=== PATIENT | female | born 1980 | race Caucasian/White ===

== ENCOUNTER 2021-12-10 05:25 | Emergency (ER) | payer MEDICAID, OTHER ==
[~2021-12-10] VITALS: Ht 172.7 cm; Wt 94.2 kg
[2021-12-10 05:32] VITALS: BP 143/105
[2021-12-10] MEDS ORDERED: ONDA4TAB11 PO (06:07)
--- NOTE | 2021-12-10 06:07 | ED General ---
General Chief Complaint: General Problems/Pain Stated Complaint: NAUSEA/VOMITING Nursing Triage Note: Patient states that she hasn't been feeling good for the last couple of days. Patient can't pinpoint a problem other than she states she has been lethargic. Patient denies any sick contacts however [place] Patient has a flat affect. Source of Information: Patient Exam Limitations: No Limitations History of Present Illness Date Seen by Provider: Dec 10, 2021 Time Seen by Provider: 05:30 Initial Comments Patient is 41-year-old female presents with fatigue nausea for the past couple days with difficulty urinating. She reports multiple sick contacts. She denies fever chills nausea sweats. No cough, sore throat. No rash headache, dizziness, change in vision. No other symptoms or complaints Timing/Duration: 12-24 Hours Modifying Factors: improves with Other Associated Systoms: Other Allergies and Home Medications Patient Home Medication List Home Medication List Reviewed: No Review of Systems Review of Systems Constitutional: see HPI EENTM: see HPI Respiratory: see HPI Cardiovascular: see HPI Gastrointestinal: see HPI Genitourinary: see HPI Musculoskeletal: see HPI Skin: see HPI Psychiatric/Neurological: See HPI Hematologic/Lymphatic: See HPI Immunological/Allergic: see HPI All Other Systems Reviewed Negative Unless Noted: Yes Past Kxphoke-Wjcryi-Qnlmcq Hx Patient Social History Tobacco Use?: Yes Tobacco type used: Cigarettes Smoking Status: Current Everyday Smoker Use of E-Cig and/or Vaping dev: Yes E-Cig or Vaping type used: Nicotine Substance use?: No Alcohol Use?: No Pt feels they are or have been: No Immunizations Up To Date COVID19 Vaccine Patternmaker Pressure Cast: Moderna Physical Exam Vital Signs Vital Signs - First Documented 12/10/21 05:32 Temp 37.2 Pulse 110 Resp 16 B/P (MAP) 143/105 (118) Pulse Ox 99 O2 Delivery Room Air Capillary Refill : Less Than 3 Seconds Height, Weight, BMI Height: '" Weight: lbs. oz. kg; 31.00 BMI Method: General Appearance: No Apparent Distress, WD/WN Eyes: Bilateral Eye Normal Inspection, Bilateral Eye PERRL, Bilateral Eye EOMI HEENT: PERRL/EOMI, Normal ENT Inspection Neck: Non Tender, Supple Cardiovascular: Regular Rate, Rhythm Gastrointestinal: Non Tender, Soft Neurologic/Psychiatric: Alert, Oriented x3, No Motor/Sensory Deficits Skin: Warm/Dry Focused Exam Sepsis Stage: Ruled Out Progress/Results/Core Measures Suspected Sepsis SIRS Temperature: Pulse: 110 Respiratory Rate: 16 Blood Pressure 143 /105 Mean: 118 Results/Orders Lab Results Laboratory Tests Test 12/10/21 05:52 Range/Units Glucometer 110 70-110 MG/DL My Orders Orders - VIVIANA BARAKAT DO Urine Bedside (12/10/21 05:38) Ua Culture If Indicated (12/10/21 05:38) Accucheck Stat ONCE (12/10/21 05:38) Vital Signs/I&O 12/10/21 05:32 Temp 37.2 Pulse 110 Resp 16 B/P (MAP) 143/105 (118) Pulse Ox 99 O2 Delivery Room Air Capillary Refill : Less Than 3 Seconds Blood Pressure Mean: 118 Point of Care Testing Finger Stick Blood Glucose: 110 Blood Glucose Action Taken: Dr. Barakat notified Departure Communication (Admissions) Patient with benign physical exam. Will test for COVID, quarantine and treat supportively. Impression Primary Impression: Fatigue Additional Impression: Nausea and vomiting Disposition: 01 HOME, SELF-CARE Condition: Stable Departure-Patient Inst. Decision time for Depature: 06:05 Referrals: NO,LOCAL PHYSICIAN (PCP/Family) Primary Care Physician Patient Instructions: Fatigue, Nausea and Vomiting, Adult Add. Discharge Instructions: Please go home and rest, continue to self quarantine pending COVID results. Take nausea medication as directed. Follow-up with your PCP in 2 to 3 days for reevaluation if symptoms persist. Return to the ED if new or worsening symptoms. All discharge instructions reviewed with patient and/or family. Voiced understanding. Scripts Ondansetron (Ondansetron Odt) 4 Mg Tab.rapdis 4 MG PO Q6H, #10 TAB Prov: VIVIANA BARAKAT DO 12/10/21 Work/School Note: Work Release Form Date Seen in the Emergency Department: Dec 10, 2021 Return to Work: Dec 12, 2021 Restrictions: No Restrictions VIVIANA BARAKAT DO Dec 10, 2021 06:07
[2021-12-10] MEDS ORDERED: ONDANSETRON 4 MG (ZOFRAN) ORAL DISSOLVE TAB PO STA (06:09)
== END 2021-12-10 06:15 | disposition home or self-care (01) ==
LOC: ER FS 05:29
DX: R11.2 Nausea with vomiting, unspecified (principal); R53.83 Other fatigue; F17.210 Nicotine dependence, cigarettes, uncomplicated
CPT/HCPCS: 82947

== ENCOUNTER 2021-12-10 22:53 | Emergency (ER) | payer MEDICAID ==
[~2021-12-10] VITALS: Ht 172.7 cm; Wt 92.9 kg
[~2021-12-10 22:53] MED LIST: ONDA4TAB11 PO
[2021-12-10] MEDS ORDERED: ONDANSETRON 4 MG/2 ML (SDV) Z0FRAN IVP ONE (23:15)
[2021-12-10] MEDS ORDERED: LACTATED RINGERS 1,000 ML IV ONE (23:15)
[2021-12-10 23:23] LABS: BASOPHILS # (AUTO) 0.1 10^3/uL (0.0-0.1); BASOPHILS % (AUTO) 1 % (0-10); EOSINOPHILS # (AUTO) 0.2 10^3/uL (0.0-0.3); EOSINOPHILS % (AUTO) 1 % (0-10); HEMATOCRIT 38 % (35-52); HEMOGLOBIN 12.7 g/dL (11.5-16.0); LYMPHOCYTES # (AUTO) 3.9 10^3/uL (1.0-4.0); LYMPHOCYTES % (AUTO) 37 % (12-44); MEAN CORPUSCULAR HEMOGLOBIN 31 pg (25-34); MEAN CORPUSCULAR HGB CONC 33 g/dL (32-36); MEAN CORPUSCULAR VOLUME 94 fL (80-99); MEAN PLATELET VOLUME 10.6 fL (9.0-12.2); MONOCYTES # (AUTO) 0.9 10^3/uL (0.0-1.0); MONOCYTES % (AUTO) 8 % (0-12); NEUTROPHILS # (AUTO) 5.5 10^3/uL (1.8-7.8); NEUTROPHILS % (AUTO) 52 % (42-75); PLATELET COUNT 377 10^3/uL (130-400); WHITE BLOOD COUNT 10.6 10^3/uL (4.3-11.0)
[2021-12-10 23:28] LABS: CHLORIDE 106 MMOL/L (98-107); POTASSIUM 3.6 MMOL/L (3.6-5.0); SODIUM 140 MMOL/L (135-145)
[2021-12-10 23:29] LABS: ALBUMIN 3.7 GM/DL (3.2-4.5)
[2021-12-10 23:30] LABS: CALCIUM 9.1 MG/DL (8.5-10.1)
[2021-12-10 23:32] LABS: GLUCOSE 104 MG/DL (70-105); TOTAL PROTEIN 6.9 GM/DL (6.4-8.2)
[2021-12-10 23:33] LABS: BILIRUBIN,TOTAL 0.2 MG/DL (0.1-1.0); CARBON DIOXIDE 21 MMOL/L (21-32)
[2021-12-10 23:35] LABS: BILIRUBIN,URINE NEGATIVE (NEGATIVE); CLARITY,URINE SL CLOUDY; COLOR,URINE YELLOW; GLUCOSE, URINE (UA) NEGATIVE (NEGATIVE); KETONES,URINE NEGATIVE (NEGATIVE); LEUKOCYTE ESTERASE ,URINE TRACE (NEGATIVE); NITRITE,URINE NEGATIVE (NEGATIVE); PH,URINE 6.5 (5-9); PROTEIN,URINE NEGATIVE (NEGATIVE)
[2021-12-10 23:35] LABS: ALKALINE PHOSPHATASE 54 U/L (40-136); CREATININE SERUM 0.74 MG/DL (0.60-1.30); GFR ESTIMATED 105
[2021-12-10 23:37] LABS: BUN/CREATININE RATIO 16
[2021-12-10 23:38] LABS: ALANINE AMINOTRANSFERASE 31 U/L (0-55); SALICYLATE < 5.0 MG/DL (5.0-20.0)
[2021-12-10 23:39] LABS: CREATINE KINASE 85 U/L (29-168)
[2021-12-10 23:42] LABS: AMORPHOUS SEDIMENT,UR FEW AMOR URATES /LPF; BACTERIA,URINE TRACE /HPF; WBC,URINE 0-2 /HPF
[2021-12-10 23:43] LABS: ACETAMINOPHEN < 10 UG/ML (10-30)
[2021-12-10 23:50] LABS: AMPHETAMINE SCREEN, URINE NEGATIVE (NEGATIVE); BARBITURATE SCREEN URINE NEGATIVE (NEGATIVE); BENZODIAZEPINES SCREEN URINE NEGATIVE (NEGATIVE); CANNABINOID SCREEN, URINE NEGATIVE (NEGATIVE); COCAINE SCREEN URINE NEGATIVE (NEGATIVE); METHADONE STAT NEGATIVE (NEGATIVE); OPIATE SCREEN URINE NEGATIVE (NEGATIVE); OXYCODONE STAT NEGATIVE (NEGATIVE); PROPOXYPHENE STAT NEGATIVE (NEGATIVE); TRICYCLIC ANTIDEPRESSANTS SCRE NEGATIVE (NEGATIVE)
[2021-12-10 23:59] LABS: TSH (THYROID ANALYZER) 2.49 UIU/ML (0.35-4.94)
[2021-12-11] MEDS ORDERED: MECLIZINE 25 MG (ANTIVERT) TAB PO ONE (03:15)
--- NOTE | 2021-12-11 03:25 | ED General ---
General Chief Complaint: Altered Mental Status Stated Complaint: ALTERED MENTAL STATUS Nursing Triage Note: PT TO ROOM BY [facility]. EMS REPORTS PT CALLED AND STATED SHE WAS ALTERED. EMS REPORTS PT WAS PICKED UP AT [facility] [place]. PT STATES SHE STARTED FEELING OFF ABOUT 6 HOURS BEFORE SHE CALLED EMS. PT ANSWERING QUESTIONS AND SPEAKING APPROPRIATELY UPON ARRIVAL Source of Information: Patient, EMS Exam Limitations: No Limitations History of Present Illness Date Seen by Provider: Dec 10, 2021 Time Seen by Provider: 23:05 Allergies and Home Medications Allergies Coded Allergies: Sulfa (Sulfonamide Antibiotics) (Verified Allergy, Unknown, 12/10/21) Patient Home Medication List Home Medication List Reviewed: Yes Ondansetron (Ondansetron Odt) 4 Mg Tab.rapdis, 4 MG PO Q6H Prescribed by: VIVIANA HALL on 12/10/21 0607 Past Ojaenfb-Ygvtuw-Pzldpz Hx Patient Social History Tobacco Use?: Yes Tobacco type used: Cigarettes Smoking Status: Current Everyday Smoker Substance use?: No Alcohol Use?: No Immunizations Up To Date Influenza Vaccine Up-to-Date: No; Not Current Physical Exam Vital Signs Vital Signs - First Documented 12/10/21 23:00 Temp 36.4 Pulse 87 Resp 17 B/P (MAP) 140/84 (102) Pulse Ox 98 Capillary Refill : Height, Weight, BMI Height: '" Weight: lbs. oz. kg; 31.00 BMI Method: Progress/Results/Core Measures Suspected Sepsis SIRS Temperature: Pulse: 87 Respiratory Rate: 17 Laboratory Tests 12/10/21 23:00: White Blood Count 10.6 Blood Pressure 140 /84 Mean: 102 Laboratory Tests 12/10/21 23:00: Creatinine 0.74, Platelet Count 377, Total Bilirubin 0.2 Results/Orders Lab Results Laboratory Tests Test 12/10/21 23:00 12/10/21 23:22 Range/Units White Blood Count 10.6 4.3-11.0 10^3/uL Red Blood Count 4.10 3.80-5.11 10^6/uL Hemoglobin 12.7 11.5-16.0 g/dL Hematocrit 38 35-52 % Mean Corpuscular Volume 94 80-99 fL Mean Corpuscular Hemoglobin 31 25-34 pg Mean Corpuscular Hemoglobin Concent 33 32-36 g/dL Red Cell Distribution Width 12.3 10.0-14.5 % Platelet Count 377 130-400 10^3/uL Mean Platelet Volume 10.6 9.0-12.2 fL Immature Granulocyte % (Auto) 0 % Neutrophils (%) (Auto) 52 42-75 % Lymphocytes (%) (Auto) 37 12-44 % Monocytes (%) (Auto) 8 0-12 % Eosinophils (%) (Auto) 1 0-10 % Basophils (%) (Auto) 1 0-10 % Neutrophils # (Auto) 5.5 1.8-7.8 10^3/uL Lymphocytes # (Auto) 3.9 1.0-4.0 10^3/uL Monocytes # (Auto) 0.9 0.0-1.0 10^3/uL Eosinophils # (Auto) 0.2 0.0-0.3 10^3/uL Basophils # (Auto) 0.1 0.0-0.1 10^3/uL Immature Granulocyte # (Auto) 0.0 0.0-0.1 10^3/uL Sodium Level 140 135-145 MMOL/L Potassium Level 3.6 3.6-5.0 MMOL/L Chloride Level 106 98-107 MMOL/L Carbon Dioxide Level 21 21-32 MMOL/L Anion Gap 13 5-14 MMOL/L Blood Urea Nitrogen 12 7-18 MG/DL Creatinine 0.74 0.60-1.30 MG/DL Estimat Glomerular Filtration Rate 105 BUN/Creatinine Ratio 16 Glucose Level 104 70-105 MG/DL Calcium Level 9.1 8.5-10.1 MG/DL Corrected Calcium 9.3 8.5-10.1 MG/DL Magnesium Level 2.0 1.6-2.4 MG/DL Total Bilirubin 0.2 0.1-1.0 MG/DL Aspartate Amino Transf (AST/SGOT) 15 5-34 U/L Alanine Aminotransferase (ALT/SGPT) 31 0-55 U/L Alkaline Phosphatase 54 40-136 U/L Total Creatine Kinase 85 29-168 U/L C-Reactive Protein High Sensitivity 0.59 H 0.00-0.50 MG/DL Total Protein 6.9 6.4-8.2 GM/DL Albumin 3.7 3.2-4.5 GM/DL TSH [place] Testing 2.49 0.35-4.94 UIU/ML Serum Test, Qualitative NEGATIVE NEGATIVE Salicylates Level < 5.0 L 5.0-20.0 MG/DL Acetaminophen Level < 10 L 10-30 UG/ML Serum Alcohol < 10 <10 MG/DL Urine Color YELLOW Urine Clarity SL CLOUDY Urine pH 6.5 5-9 Urine Specific [place] <=1.005 1.016-1.022 Urine Protein NEGATIVE NEGATIVE Urine Glucose (UA) NEGATIVE NEGATIVE Urine Ketones NEGATIVE NEGATIVE Urine Nitrite NEGATIVE NEGATIVE Urine Bilirubin NEGATIVE NEGATIVE Urine Urobilinogen 0.2 < = 1.0 MG/DL Urine Leukocyte Esterase TRACE H NEGATIVE Urine RBC (Auto) NEGATIVE NEGATIVE Urine RBC NONE /HPF Urine WBC 0-2 /HPF Urine Squamous Epithelial Cells 5-10 /HPF Urine Crystals PRESENT H /LPF Urine Amorphous Sediment FEW ELIS URATES H /LPF Urine Bacteria TRACE /HPF Urine Casts NONE /LPF Urine Mucus NEGATIVE /LPF Urine Culture Indicated NO Urine Opiates Screen NEGATIVE NEGATIVE Urine Oxycodone Screen NEGATIVE NEGATIVE Urine Methadone Screen NEGATIVE NEGATIVE Urine Propoxyphene Screen NEGATIVE NEGATIVE Urine Barbiturates Screen NEGATIVE NEGATIVE Ur Tricyclic Antidepressants Screen NEGATIVE NEGATIVE Urine Phencyclidine Screen NEGATIVE NEGATIVE Urine Amphetamines Screen NEGATIVE NEGATIVE Urine Methamphetamines Screen NEGATIVE NEGATIVE Urine Benzodiazepines Screen NEGATIVE NEGATIVE Urine Cocaine Screen NEGATIVE NEGATIVE Urine Cannabinoids Screen NEGATIVE NEGATIVE My Orders Orders - YAMILET NAIK MD Ekg Tracing (12/10/21 22:59) Acetaminophen (12/10/21 23:13) Alcohol (12/10/21 23:13) Cbc With Automated Diff (12/10/21 23:13) Comprehensive Metabolic Panel (12/10/21 23:13) Creatine Kinase (12/10/21 23:13) Hs C Reactive Protein (12/10/21 23:13) Drug Screen Stat (Urine) (12/10/21 23:13) Hcg,Qualitative Serum (12/10/21 23:13) Magnesium (12/10/21 23:13) Salicylate (12/10/21 23:13) Thyroid Analyzer (12/10/21 23:13) Ua Culture If Indicated (12/10/21 23:13) Monitor-Rhythm Ecg Trace Only (12/10/21 23:13) Ed Iv/Invasive Line Start (12/10/21 23:13) Lactated Ringers (Lr 1000 Ml Iv Solution (12/10/21 23:15) Ondansetron Injection (Zofran Injectio (12/10/21 23:15) Meclizine Tablet (Antivert Tablet) (12/11/21 03:15) Medications Given in ED Current Medications Medications Dose Ordered Sig/Jayme Route Start Time Stop Time Status Last Admin Dose Admin Lactated Ringer's 1,000 ml @ 0 mls/hr Q0M ONCE IV 12/10/21 23:15 12/10/21 23:16 DC 12/10/21 23:40 0 MLS/HR Meclizine HCl 25 mg ONCE ONCE PO 12/11/21 03:15 12/11/21 03:16 DC 12/11/21 03:27 25 MG Ondansetron HCl 8 mg ONCE ONCE IVP 12/10/21 23:15 12/10/21 23:16 DC 12/10/21 23:40 8 MG Vital Signs/I&O 12/10/21 12/11/21 23:00 03:30 Temp 36.4 Pulse 87 90 Resp 17 15 B/P (MAP) 140/84 (102) 128/85 Pulse Ox 98 95 Capillary Refill : Blood Pressure Mean: 102 ECG Initial ECG Impression Date: Dec 10, 2021 Initial ECG Impression Time: 23:00 Initial ECG Rate: 86 Initial ECG Rhythm: Normal Sinus Initial ECG Intervals: Normal Initial ECG Impression: Normal Comment Sinus rhythm with no ST elevation or depression. No abnormal intervals or axis deviation. Departure Impression Primary Impression: Altered mental status Qualified Codes: R41.82 - Altered mental status, unspecified Additional Impressions: Vertigo Nausea Bipolar disorder Qualified Codes: F31.9 - Bipolar disorder, unspecified Disposition: 01 HOME, SELF-CARE Condition: Improved Departure-Patient Inst. Decision time for Depature: 03:24 Referrals: NO,LOCAL PHYSICIAN (PCP/Family) Primary Care Physician Patient Instructions: Vertigo ED Add. Discharge Instructions: Drink plenty of clear liquids to stay well-hydrated. You may use meclizine purchased [id number] to treat vertigo. You may also try the Addy maneuver at home by following the attached instructions. Follow-up with your primary care provider soon as possible. [facility] and request a transfer to a local [facility] so that you may start your medication as soon as possible. Return to care if you have worsening symptoms. All discharge instructions reviewed with patient and/or family. Voiced understanding. YAMILET NAIK MD Dec 11, 2021 03:25
[2021-12-11 03:30] VITALS: BP 128/85
== END 2021-12-11 03:35 | disposition home or self-care (01) ==
LOC: EDUNIT# 22:53 → ER 22:55
DX: R41.82 Altered mental status, unspecified (principal); R42 Dizziness and giddiness; F31.9 Bipolar disorder, unspecified; F17.210 Nicotine dependence, cigarettes, uncomplicated
CPT/HCPCS: 80053; 80306; 81000; 82550; 83735; 84443; 84703; 85025; 86141; 93005; 93041; 99283; G0480 ×3; 36415; 80320; 80329